=== PATIENT | female | born 1980 | race Caucasian/White ===

== ENCOUNTER 2024-01-18 13:26 | Outpatient (OUT) | payer OTHER, BC, SELFPAY ==
--- NOTE | 2024-01-18 13:30 | MM_ITS ---
Patient Name: DUNCAN MULLINS MR#: [id number] : 1980 Exam Date: 01/18/2024 Ordering Doctor: Non-Staff Physician RADIOLOGY REPORT PROCEDURE: MM TOMOSYNTHESIS SCREENING BI COMPARISON: MG MAMM SCREEN 3D LARRY CAD, 01/20/2022. INDICATIONS: screening Calculator Name NCI Breast Cancer Risk Assessment Tool 5 Year Breast Cancer Risk 0.70% Lifetime Breast Cancer Risk 8.60% Personal Breast Cancer No Personal Ovarian Cancer No Treatments None Family Cancers None LOCATION: [facility] BREAST COMPOSITION: The breasts are heterogeneously dense,which may obscure small masses. FINDINGS: DIAGNOSTIC CATEGORY 1--NEGATIVE. NO CHANGE FROM COMPARISON ASSESSMENT. RIGHT BREAST: No significant suspicious finding. LEFT BREAST: No significant suspicious finding. RECOMMENDATIONS: ROUTINE MAMMOGRAM AND CLINICAL EVALUATION IN 12 MONTHS. PLEASE NOTE: A NORMAL MAMMOGRAM DOES NOT EXCLUDE THE POSSIBILITY OF BREAST CANCER. A CLINICALLY SUSPICIOUS PALPABLE LUMP SHOULD BE BIOPSIED. Dictated by: Mark Gerardo MD on 01/18/2024 at 15:14 Approved by: Mark Gerardo MD on 01/18/2024 at 15:15
== END 2024-01-18 13:27 | disposition home or self-care (01) ==
LOC: MAMMO 13:26
DX: Z12.31 Encounter for screening mammogram for malignant neoplasm of breast (principal)
CPT/HCPCS: 77063; 77067

== ENCOUNTER 2025-04-05 08:10 | Emergency (ER) | payer OTHER, SELFPAY ==
[2025-04-05] VITALS (13 sets, daily range): BP systolic 100–120; BP diastolic 60–77; PULSE 63–79; TEMP 36.8; O2SAT 100; BMI 19.2
--- NOTE | 2025-04-05 08:21 | ED_ITS ---
HPI HPI - General Adult General Chief complaint: Weakness Stated complaint: WEAKNESS DEHYDRATION Time Seen by Provider: 04/05/25 08:21 History of Present Illness HPI narrative: 44-year-old female presented to the emergency department for diarrhea and feeling weak. 2 days ago she had a colonoscopy and admits that she really has not drank enough water afterwards. She became weak and dizzy today. She has had some fatigue recently as well and is concerned about her ferritin level. She has had low ferritin levels before. She had 8 polyps removed during the colonoscopy and has not passed any blood. Related Data Home Medications ?Medication ?Instructions ?Recorded ?Confirmed levothyroxine 112 mcg tablet mcg 04/05/25 (Synthroid) Allergies Allergy/AdvReac Type Severity Reaction Status Date / Time No Known Drug Allergies Allergy Verified 04/05/25 08:26 Review of Systems ROS Narrative A ten point review of systems is negative except as noted above. [facility] Medical History (Updated 04/05/25 @ 09:49 by Ryan Lebron MD) Hypothyroid ?E03.9 - Hypothyroidism, unspecified (ICD-10) Colonoscopy planned Celiac disease ?K90.0 - Celiac disease (ICD-10) Social History (Updated 04/05/25 @ 09:19 by Lauren Alamo RN) Smoking status: Never smoker Non-prescribed substance use: denies use Little interest or pleasure in doing things: not at all Feeling down, depressed, or hopeless: not at all Exam Narrative Exam Narrative: Nurses note and vital signs reviewed and patient is not hypoxic. General:The patient appears well and in no apparent distress.Patient is resting comfortably on cart. Skin:Warm, dry, no pallor noted.There is no rash noted. Head:Normocephalic, atraumatic Eye: Normal conjunctiva, no drainage Ears, Nose, Mouth, and Throat: oral mucosa is moist. Nares patent. Cardiovascular:Regular Rate and Rhythm Respiratory:Patient is in no distress, no accessory muscle use, lungs are clear to auscultation, no wheezing, rales or rhonchi Back:non-tender GI: Soft and nontender Musculoskeletal: The patient has no evidence of calf tenderness, no pitting edema, symmetrical pulses noted bilaterally Neurological:A&O, normal speech Psychiatric:Cooperative Constitutional Vital Signs, click to edit/add: Last Vital Signs Temp 98.3 F 04/05/25 08:20 Pulse 73 04/05/25 09:20 Resp 19 04/05/25 09:20 BP 103/65 04/05/25 09:00 Pulse Ox 100 04/05/25 09:20 O2 Del Method Room Air 04/05/25 08:20 Course Vital Signs Vital signs: Vital Signs Temperature 98.3 F 04/05/25 08:20 Pulse Rate 79 04/05/25 08:20 Respiratory Rate 16 04/05/25 08:20 Blood Pressure 120/77 04/05/25 08:20 Pulse Oximetry 100 04/05/25 08:20 Oxygen Delivery Method Room Air 04/05/25 08:20 Temperature 98.3 F 04/05/25 08:20 Pulse Rate 73 04/05/25 09:20 Respiratory Rate 19 04/05/25 09:20 Blood Pressure 103/65 04/05/25 09:00 Pulse Oximetry 100 04/05/25 09:20 Oxygen Delivery Method Room Air 04/05/25 08:20 Medical Decision Making MDM Narrative Medical decision making narrative: Blood work is essentially normal. She was given IV fluids and feels much better now and is discharged home. She was given instructions to drink plenty of fluids, noncaffeinated. Treatment diagnosis and follow-up were discussed with the patient. Differential Diagnosis Differential Diagnosis: Dehydration, acute kidney injury, electrolyte imbalance Lab Data Lab results reviewed: Yes I reviewed the patient's lab results Labs: Lab Results 04/05/25 Range/Units 08:40 WBC 5.0 (4.0-11.0) 10^3/uL RBC 4.30 (4.20-5.40) 10^6/uL Hgb 12.6 (12.0-16.0) g/dL Hct 38.1 (36.0-48.0) % MCV 88.6 (81.0-99.0) fL MCH 29.3 (26.7-34.0) pg MCHC 33.1 (29.9-35.2) g/dL RDW 12.8 (11.0-15.0) % Plt Count 194 (150-450) 10^3/uL MPV 10.2 (9.5-13.5) fL Neut % (Auto) 71.3 (43.0-75.0) % Lymph % (Auto) 15.5 L (20.5-60.0) % [place] % (Auto) 10.4 (1.7-12.0) % Eos % (Auto) 2.0 (0.9-7.0) % Baso % (Auto) 0.6 (0.2-2.0) % Neut # (Auto) 3.6 (1.4-6.5) 10^3/uL Lymph # (Auto) 0.8 L (1.2-3.8) 10^3/uL [place] # (Auto) 0.5 (0.3-0.8) 10^3/uL Eos # (Auto) 0.1 (0.0-0.7) 10^3/uL Baso # (Auto) 0.0 (0.0-0.1) 10^3/uL Abs Immat Gran (auto) 0.01 (0.00-0.03) 10^3/uL Imm/Tot Granulo (auto) 0.2 (0.0-0.5) % Sodium 136 (136-145) mmol/L Potassium 3.5 (3.5-5.1) mmol/L Chloride 100 (98-107) mmol/L Carbon Dioxide 25.4 (21.0-32.0) mmol/L Anion Gap 14.1 BUN 8.0 (7.0-18.0) mg/dL Creatinine 0.77 (0.55-1.02) mg/dL Est GFR ( Amer) >60 (>=60 mL/min/1.73m^2) Est GFR (Non-Af Amer) >60 (>=60 mL/min/1.73m^2) BUN/Creatinine Ratio 10.4 Glucose 83 (74-106) mg/dL Calcium 8.5 (8.5-10.1) mg/dL Ferritin 45.0 (8.0-252.0) ng/mL Serum HCG, Qual Negative (NEGATIVE) ECG Data Attestation: I personally reviewed and interpreted this ECG as follows: (EKG on my interpretation shows a rate of 66. Sinus rhythm.) Discharge Plan Discharge Chief Complaint: Weakness Clinical Impression: Dehydration Patient Disposition: Home, Self-Care Time of Disposition Decision: 09:49 Condition: Good Mode of Transportation: Private Vehicle Prescriptions / Home Meds: No Action levothyroxine [Synthroid] 112 mcg tablet Print Language: Pashto Instructions: Dehydration (ED) Referrals: Physician,Non-Staff, MD [Primary Care Provider] - 1 week
--- NOTE | 2025-04-05 08:27 | ECG_ITS ---
[facility] Test Date: 2025-04-05 Pat Name: DUNCAN MULLINS Department: Room: - Gender: Female Rn Recovery: : 1980 Requested By: [id number] Order Number: [id number] Reading MD: Kojo Aguayo Measurements Intervals [place] Rate: 66 P: -80 NH: 134 QRS: 87 QRSD: 112 T: 68 QT: 396 QTc: 409 Interpretive Statements sinus rhythm with competing 1300 Junctional rhythm 2440 Incomplete right bundle branch block 9140 abnormal rhythm ECG No previous ECG available for comparison Electronically Signed On 04-05-2025 12:55:12 EDT by Kojo Aguayo
[2025-04-05] MEDS: 0.9 % SODIUM CHLORIDE 1,000 ML 1000 ML IV (08:42)
[2025-04-05 08:46] LABS: Hematocrit 38.1 % (36.0-48.0); Hemoglobin 12.6 g/dL (12.0-16.0); Immature Granulocytes Abs Auto 0.01 10^3/uL (0.00-0.03); Immature Granulocytes Pct Auto 0.2 % (0.0-0.5); Lymphocytes Absolute Auto 0.8 10^3/uL (1.2-3.8); Mean Corpuscular HGB Conc 33.1 g/dL (29.9-35.2); Mean Corpuscular Hemoglobin 29.3 pg (26.7-34.0); Mean Corpuscular Volume 88.6 fL (81.0-99.0); Platelet Count 194 10^3/uL (150-450); Red Blood Count 4.30 10^6/uL (4.20-5.40); White Blood Count 5.0 10^3/uL (4.0-11.0)
[2025-04-05 08:54] LABS: Anion Gap 14.1; Blood Urea Nitrogen 8.0 mg/dL (7.0-18.0); Calcium 8.5 mg/dL (8.5-10.1); Carbon Dioxide 25.4 mmol/L (21.0-32.0); Chloride 100 mmol/L (98-107); Estimated GFR (African America >60 (>=60 mL/min/1.73m^2); Estimated GFR (Non-African Ame >60 (>=60 mL/min/1.73m^2); Glucose 83 mg/dL (74-106); Potassium 3.5 mmol/L (3.5-5.1); Sodium 136 mmol/L (136-145)
[2025-04-05 09:29] LABS: Ferritin 45.0 ng/mL (8.0-252.0)
== END 2025-04-05 10:05 | disposition home or self-care (01) ==
PROVIDERS: Emergency Provider Emergency Medicine
DX: E86.0 Dehydration (principal)
CPT/HCPCS: 36415; 80048; 82728; 84703; 85025; 93005; 96374; 99284; J2405

== ENCOUNTER 2025-06-21 13:27 | Outpatient (OUT) | payer OTHER, SELFPAY ==
--- NOTE | 2025-06-21 13:30 | MM_ITS ---
Patient Name: DUNCAN MULLINS MR#: [id number] : 1980 Exam Date: 06/21/2025 Ordering Doctor: RADHA ANGUIANO RADIOLOGY REPORT PROCEDURE: MM TOMOSYNTHESIS SCREENING BI COMPARISON: MM TOMOSYNTHESIS SCREENING BI, 01/18/2024. MG MAMM SCREEN 3D LARRY CAD, 01/20/2022. INDICATIONS: Screening Calculator Name NCI Breast Cancer Risk Assessment Tool 5 Year Breast Cancer Risk 0.80% Lifetime Breast Cancer Risk 8.50% Personal Breast Cancer No Personal Ovarian Cancer No Treatments None Family Cancers None LOCATION: [facility] BREAST COMPOSITION: The breasts are heterogeneously dense, which may obscure small masses. FINDINGS: RIGHT BREAST: No significant suspicious finding. LEFT BREAST: No significant suspicious finding. DIAGNOSTIC CATEGORY 1--NEGATIVE. NO CHANGE FROM COMPARISON ASSESSMENT. RECOMMENDATIONS: ROUTINE MAMMOGRAM AND CLINICAL EVALUATION IN 12 MONTHS. Dictated by: Jose Carlos Garvey MD on 06/21/2025 at 15:08 Approved by: Jose Carlos Garvey MD on 06/21/2025 at 15:09
== END 2025-06-21 13:28 | disposition home or self-care (01) ==
LOC: MAMMO 13:27
PROVIDERS: Visit Provider Nurse Practitioner Family
DX: Z12.31 Encounter for screening mammogram for malignant neoplasm of breast (principal)
CPT/HCPCS: 77063; 77067